=== PATIENT | male | born 1960 | race Caucasian/White ===

== ENCOUNTER 2018-12-20 17:58 | Emergency (ER) | payer BC ==
[~2018-12-20] VITALS: Ht 167.6 cm; Wt 81.6 kg
[2018-12-20 18:39] LABS: BASO # 0.1 10*3/uL (0.0-0.1); BASO % 0.5 % (0.0-1.0); EOS # 0.1 10*3/uL (0.0-0.4); EOS % 0.7 % (1.0-4.0); HEMATOCRIT 45.7 % (42.0-52.0); HEMOGLOBIN 15.3 g/dl (14.0-18.0); LYMPH # 2.7 10*3/uL (1.3-4.4); LYMPH % 23.4 % (27.0-41.0); MEAN CORPUSCULAR HGB 30.1 pg (27.0-31.0); MEAN CORPUSCULAR HGB CONC 33.5 g/dl (33.0-37.0); MEAN PLATELET VOLUME 9.8 fl (9.6-12.3); MONO # 0.6 10*3/uL (0.1-1.0); MONO % 5.2 % (3.0-9.0); NEUT % 69.8 % (47.0-73.0); PLATELET COUNT AUTOMATED 338 10*3/uL (130-400); RED BLOOD COUNT 5.08 10*6/uL (4.50-5.90); RED CELL DISTRI WIDTH 13.6 % (0-14.5); WHITE BLOOD COUNT 11.5 10*3/uL (4.8-10.8)
[2018-12-20 18:49] LABS: ACT PARTIAL THROMBO TIME 47.4 SECONDS (20.0-32.1)
[2018-12-20 18:56] LABS: ALKALINE PHOSPHATASE 85 U/L (45-117); BUN 21 mg/dl (7-24); CHLORIDE 109 mmol/L (98-107); CREATININE 1.44 mg/dL (0.70-1.30); POTASSIUM 3.8 mmol/L (3.5-5.1); SGOT/AST 29 IU/L (3-35); SGPT/ALT 37 U/L (12-78); SODIUM 141 mmol/L (136-145); TOTAL PROTEIN 7.5 gm/dL (6.4-8.2)
== END 2018-12-20 19:06 | disposition home or self-care (01) ==
LOC: ED 17:58
PROVIDERS: Nurse Practitioner Family
DX: R04.0 Epistaxis (principal); I10 Essential (primary) hypertension; Z79.01 Long term (current) use of anticoagulants

== ENCOUNTER 2019-05-18 11:21 | Emergency (ER) | payer BC ==
[~2019-05-18] VITALS: Ht 167.6 cm; Wt 90.7 kg
[2019-05-18] MEDS ORDERED: WARFARIN SODIU7.5 MG PO (11:42)
[2019-05-18] MEDS ORDERED: AMLODIPINE BESY10 MG PO (11:42)
[2019-05-18] MEDS ORDERED: ATORVASTATIN CA40 M1 PO (11:42)
[2019-05-18] MEDS ORDERED: LISINOPRIL5 MG PO (11:42)
[2019-05-18] MEDS ORDERED: ASPIRIN ADULT L81 M1 PO (11:43)
[2019-05-18] MEDS ORDERED: MOMETASONE FURO17 GM NAS (13:31)
[2019-05-18] MEDS ORDERED: AUGMENTIN 875-875 MG PO (13:31)
[2019-05-18] MEDS ORDERED: CETIRIZINE10 MG PO (13:31)
== END 2019-05-18 14:25 | disposition home or self-care (01) ==
LOC: ED 11:21
DX: J01.90 Acute sinusitis, unspecified (principal); I10 Essential (primary) hypertension; E78.5 Hyperlipidemia, unspecified; Z79.01 Long term (current) use of anticoagulants; Z79.82 Long term (current) use of aspirin; Z79.899 Other long term (current) drug therapy; Z98.61 Coronary angioplasty status

== ENCOUNTER → 2020-12-30 | Outpatient (CLI) | payer BC ==
[~2020-12-30] MED LIST: AMLODIPINE BESY10 MG PO; ASPIRIN ADULT L81 M1 PO; ATORVASTATIN CA40 M1 PO; AUGMENTIN 875-875 MG PO; CETIRIZINE10 MG PO; LISINOPRIL5 MG PO; MOMETASONE FURO17 GM NAS; WARFARIN SODIU7.5 MG PO
== END | disposition home or self-care (01) ==
LOC: COVID19 16:11
PROVIDERS: ATTEND Internal Medicine
DX: U07.1 COVID-19 (principal)

== ENCOUNTER 2021-01-10 09:47 | Emergency (ER) | payer BC ==
[~2021-01-10] VITALS: Ht 167.6 cm; Wt 79.4 kg
[2021-01-10 10:45] LABS: BASO # 0.1 10*3/uL (0.0-0.1); BASO % 0.7 % (0.0-1.0); EOS # 0.2 10*3/uL (0.0-0.4); EOS % 1.7 % (1.0-4.0); HEMATOCRIT 42.1 % (42.0-52.0); LYMPH # 1.7 10*3/uL (1.3-4.4); LYMPH % 13.3 % (27.0-41.0); MEAN CELL VOLUME 89.2 fl (80.0-94.0); MEAN CORPUSCULAR HGB 28.6 pg (27.0-31.0); MEAN CORPUSCULAR HGB CONC 32.1 g/dl (33.0-37.0); MEAN PLATELET VOLUME 8.7 fl (9.6-12.3); MONO # 0.5 10*3/uL (0.1-1.0); PLATELET COUNT AUTOMATED 840 10*3/uL (130-400); RED BLOOD COUNT 4.72 10*6/uL (4.50-5.90); RED CELL DISTRI WIDTH 14.2 % (0-14.5); WHITE BLOOD COUNT 12.6 10*3/uL (4.8-10.8)
[2021-01-10 10:59] LABS: ALBUMIN 2.4 gm/dl (3.1-4.5); CREATININE 1.88 mg/dL (0.70-1.30); POTASSIUM 4.3 mmol/L (3.5-5.1); TOTAL PROTEIN 6.9 gm/dL (6.4-8.2)
[2021-01-10] MEDS ORDERED: DEXAMETHASONE6 MG PO (14:24)
== END 2021-01-10 14:28 | disposition home or self-care (01) ==
LOC: ED 09:47
PROVIDERS: Emergency Medicine
DX: U07.1 COVID-19 (principal); J12.82 Pneumonia due to coronavirus disease 2019; Z79.899 Other long term (current) drug therapy; Z79.82 Long term (current) use of aspirin

== ENCOUNTER 2021-01-13 10:32 | Emergency (ER) | payer BC ==
[~2021-01-13] VITALS: Ht 167.6 cm; Wt 78.0 kg
[~2021-01-13 10:32] MED LIST changes: +DEXAMETHASONE6 MG PO
[2021-01-13 11:59] LABS: ACT PARTIAL THROMBO TIME 54.1 SECONDS (20.0-32.1)
[2021-01-13 12:02] LABS: INTERNATIONAL NORM RATIO > 9.3 (2.0-3.5)
== END 2021-01-13 12:27 | disposition home or self-care (01) ==
LOC: ED 10:32
PROVIDERS: Physician Assistant
DX: R79.1 Abnormal coagulation profile (principal)

== ENCOUNTER 2022-12-31 22:29 | Emergency (ER) | payer BC ==
[~2022-12-31] VITALS: Ht 172.7 cm; Wt 89.0 kg
[2022-12-31 23:19] LABS: BASO # 0.1 10*3/uL (0.0-0.1); BASO % 0.4 % (0.0-1.0); EOS % 0.3 % (1.0-4.0); HEMATOCRIT 41.9 % (42.0-52.0); LYMPH # 1.5 10*3/uL (1.3-4.4); MEAN CELL VOLUME 88.4 fl (80.0-94.0); MEAN CORPUSCULAR HGB 29.1 pg (27.0-31.0); MEAN CORPUSCULAR HGB CONC 32.9 g/dl (33.0-37.0); MEAN PLATELET VOLUME 9.4 fl (9.6-12.3); MONO # 0.9 10*3/uL (0.1-1.0); MONO % 8.3 % (3.0-9.0); NEUT # 8.6 10*3/uL (2.3-7.9); NEUT % 76.5 % (47.0-73.0); PLATELET COUNT AUTOMATED 348 10*3/uL (130-400); RED BLOOD COUNT 4.74 10*6/uL (4.50-5.90); RED CELL DISTRI WIDTH 13.3 % (0-14.5); WHITE BLOOD COUNT 11.3 10*3/uL (4.8-10.8)
[2022-12-31 23:27] LABS: POTASSIUM 3.7 mmol/L (3.4-5.1); TOTAL PROTEIN 6.7 gm/dL (6.0-8.0)
== END 2023-01-01 01:50 | disposition home or self-care (01) ==
LOC: ED 22:29
PROVIDERS: Internal Medicine
DX: R22.1 Localized swelling, mass and lump, neck (principal); R79.89 Other specified abnormal findings of blood chemistry; N18.32 Chronic kidney disease, stage 3b; Z79.2 Long term (current) use of antibiotics; Z79.899 Other long term (current) drug therapy; Z79.01 Long term (current) use of anticoagulants; Z79.82 Long term (current) use of aspirin